=== PATIENT | male | born 2000 | race African-American/Black ===

== ENCOUNTER → 2020-07-25 | Outpatient (CLI) | payer OTHER | LOC: MHCPAIN 15:00 | DX: M79.18 Myalgia, other site (principal); M54.5 Low back pain; M47.816 Spondylosis without myelopathy or radiculopathy, lumbar region; G89.29 Other chronic pain | CPT/HCPCS: G0463 ==

== ENCOUNTER → 2020-08-01 | Outpatient (CLI) | payer OTHER | LOC: MHCPAIN 10:19 | DX: M79.18 Myalgia, other site (principal); M54.5 Low back pain | CPT/HCPCS: J1040 ==